=== PATIENT | female | born 1955 | race Caucasian/White ===

== ENCOUNTER → 2018-10-13 | Outpatient (CLI) | payer MEDICARE, BC ==
[~2018-10-13] MED LIST: ALBU90OI6; BRIMONIDINE 0.110 ML; Budeprion Xl300 MG; CHOL10002; HYDR1TAB94; LATANOPROST2.5 ML; MOMENI; Omeprazole20 M1; PROM25; Prozac20 MG; SIMV40
== END | disposition home or self-care (01) ==
LOC: LAB SHORT 15:30 → LAB 15:30
PROVIDERS: Nurse Practitioner
DX: Z01.419 Encounter for gynecological examination (general) (routine) without abnormal findings (principal)
CPT/HCPCS: G0145

== ENCOUNTER 2018-11-29 08:12 | Day surgery (SDC) | payer MEDICARE, BC ==
[~2018-11-29] VITALS: Ht 162.6 cm; Wt 99.8 kg
[~2018-11-29 08:12] MED LIST changes: +BRIMONIDINE TART5 M1 BOTHEYES; +Budeprion Xl300 MG PO; +CALCIUM CITRATE PO; +Coq-10100 MG PO; +MAGNESIUM; +Multiple Vitam1 EACH PO; +Prozac20 MG PO; +SIMV40 PO; +TURMERIC 500 M1 EACH; +VITAMIN D32000 UNI1 PO; +Xalatan2.5 ML BOTHEYES; +ZINC15
[2018-11-29] MEDS ORDERED: DORZOPSO (08:48)
== END 2018-11-29 10:35 | disposition home or self-care (01) ==
LOC: ORSCSDS 08:12
PROVIDERS: Student in an Organized Health Care Education/Training Program
PROC: 0DBH8ZX Excision of Cecum, Via Natural or Artificial Opening Endoscopic, Diagnostic (ICD-10-PCS; principal; 2018-11-29 09:30)
PROC: 0DBK8ZX Excision of Ascending Colon, Via Natural or Artificial Opening Endoscopic, Diagnostic (ICD-10-PCS; principal; 2018-11-29 09:30)
DX: Z12.11 Encounter for screening for malignant neoplasm of colon (principal); Z86.010 Personal history of colon polyps; D12.0 Benign neoplasm of cecum; D12.2 Benign neoplasm of ascending colon; Q27.33 Arteriovenous malformation of digestive system vessel; K57.30 Diverticulosis of large intestine without perforation or abscess without bleeding; K64.8 Other hemorrhoids; Z87.891 Personal history of nicotine dependence; J45.909 Unspecified asthma, uncomplicated; Z79.899 Other long term (current) drug therapy
CPT/HCPCS: 88305; J0461; J2405; J2704; J7120

== ENCOUNTER → 2019-06-20 | Outpatient (CLI) | payer MEDICARE, BC ==
[~2019-06-20] MED LIST changes: +DORZOPSO
[2019-06-20 17:13] LABS: Source, Urine Clean Catch
[2019-06-20 21:25] LABS: Bilirubin, Urine Neg (Neg); Blood, Urine Neg (Neg); Glucose Qualitative, Urine Neg (Neg); Ketones, Urine Neg (Neg); Leukocyte Esterase, Urine 1+ (Neg); Nitrite, Urine Neg (Neg); Protein, Urine Neg (Neg); Specific Gravity, Urine 1.015 (1.003-1.022); Urobilinogen, Urine NORM (Normal)
[2019-06-20 21:35] LABS: Appearance, Urine Clear (Clear); Color, Urine Yellow (P-Yellow)
[2019-06-20 21:36] LABS: Bacteria Few /hpf; Red Blood Cells, Urine 0-2 /hpf (0-2); Squamous Epithelial Cells Few /hpf (Few)
[2019-06-21 06:47] LABS: Candida species (DNA Probe) Negative (NEGATIVE); G. vaginalis (DNA Probe) Negative (NEGATIVE); T. vaginalis (DNA Probe) Negative (NEGATIVE)
== END | disposition home or self-care (01) ==
LOC: LAB 15:54 → LAB SHORT 15:54
PROVIDERS: Advanced Practice Midwife
DX: N76.0 Acute vaginitis (principal); N39.46 Mixed incontinence
CPT/HCPCS: 81001; 87480; 87510; 87660

== ENCOUNTER → 2019-06-28 | Outpatient (CLI) | payer MEDICARE, BC ==
[2019-06-28 16:22] LABS: Source, Urine Clean Catch
[2019-06-28 19:13] LABS: Red Blood Cells, Urine 0-2 /hpf (0-2); Squamous Epithelial Cells Few /hpf (Few); White Blood Cells, Urine 0-2 /hpf (0-5)
[2019-06-28 19:14] LABS: Bacteria Few /hpf
== END | disposition home or self-care (01) ==
LOC: LAB 16:20 → LAB SHORT 16:20
PROVIDERS: Advanced Practice Midwife
DX: R30.9 Painful micturition, unspecified (principal)
CPT/HCPCS: 81015; 87086

== ENCOUNTER 2019-11-01 18:53 | Observation (INO) | payer MEDICARE, BC ==
[~2019-11-01] VITALS: Ht 160 cm; Wt 100.0 kg
[~2019-11-01 18:53] MED LIST changes: -Budeprion Xl300 MG PO; -DORZOPSO; -Prozac20 MG PO; -SIMV40 PO; -Xalatan2.5 ML BOTHEYES
[2019-11-01 21:08] LABS: BASOPHILS ABSOLUTE AUTO 0.05 K/mm3 (0.00-0.23); BASOPHILS PERCENT AUTO 0 % (0-2); EOSINOPHILS ABSOLUTE AUTO 0.06 K/mm3 (0.00-0.68); EOSINOPHILS PERCENT AUTO 0 % (0-6); Hematocrit 41.6 % (33.0-51.0); Hemoglobin 12.8 g/dL (11.5-16.0); IMMATURE GRAN ABSOLUTE AUTO 0.05 K/mm3 (0.00-0.10); IMMATURE GRAN PERCENT AUTO 0 % (0-1); LYMPHOCYTES ABSOLUTE AUTO 1.77 K/mm3 (0.84-5.20); LYMPHOCYTES PERCENT AUTO 12 % (21-46); MONOCYTES ABSOLUTE AUTO 0.51 K/mm3 (0.16-1.47); MONOCYTES PERCENT AUTO 4 % (4-13); Mean Corpuscular HGB 28.3 pg (26.0-34.0); Mean Corpuscular HGB Conc 30.8 g/dL (31.5-36.5); Mean Corpuscular Volume 92 fL (80-100); Mean Platelet Volume 9.9 fL (9.1-12.4); NEUTROPHILS ABSOLUTE AUTO 11.83 K/mm3 (1.96-9.15); NEUTROPHILS PERCENT AUTO 83 % (41-73); Platelet Count 449 K/mm3 (150-400); RDW Standard Deviation 47.4 fL (35.1-46.3); Red Blood Cell Count 4.53 M/mm3 (3.80-5.20); White Blood Cell Count 14.27 K/mm3 (4.00-11.30)
[2019-11-01 21:23] LABS: Alanine Aminotransfer (ALT/SGP 165 U/L (12-78); Albumin, Blood 3.8 g/dL (3.4-5.0); Alk Phos 118 U/L (50-136); Anion Gap 6 mmol/L (6-16); Aspartate Aminotrans (AST/SGOT 364 U/L (12-37); Bilirubin, Total 0.4 mg/dL (0.1-1.0); Blood Urea Nitrogen 18 mg/dL (8-24); Bun/Creatinine Ratio 23.4 (12.0-20.0); CO2, Blood 26 mmol/L (21-32); Calcium, Blood 8.8 mg/dL (8.5-10.1); Chloride, Blood 108 mmol/L (98-108); Creatinine, Blood 0.77 mg/dL (0.40-1.00); Glomerular Filtration Rate >60 (60-); Glucose, Blood 129 mg/dL (70-99); Potassium, Blood 3.8 mmol/L (3.5-5.5); Sodium, Blood 140 mmol/L (136-145); Total Protein, Blood 7.8 g/dL (6.4-8.2); Troponin I <0.015 ng/mL (0.000-0.040)
[2019-11-01] MEDS ORDERED: BUPROPION XL150 M1 PO (22:24)
[2019-11-01] MEDS ORDERED: SIMV40 PO (22:24)
[2019-11-01] MEDS ORDERED: Prozac20 MG PO (22:24)
[2019-11-01] MEDS ORDERED: Xalatan2.5 ML BOTHEYES (22:25)
[2019-11-01] MEDS ORDERED: DORZOPSO BOTHEYES (22:26)
[2019-11-01] MEDS ORDERED: OMEP20ER PO (22:26)
[2019-11-01] MEDS ORDERED: Oxybutynin Chlor5 M1 PO (22:27)
[2019-11-01 23:14] LABS: Source, Urine Clean Catch
[2019-11-01 23:18] LABS: Appearance, Urine Clear (Clear); Color, Urine Yellow (P-Yellow); Leukocyte Esterase, Urine Neg (Neg); Nitrite, Urine Neg (Neg); Specific Gravity, Urine 1.005 (1.003-1.022)
[2019-11-01 23:19] LABS: Bilirubin, Urine Neg (Neg); Blood, Urine Neg (Neg); Glucose Qualitative, Urine Neg (Neg); Ketones, Urine Neg (Neg); Protein, Urine 1+ (Neg); Urobilinogen, Urine NORM (Normal)
--- NOTE | 2019-11-02 05:13 | NUR ---
SHIFT SUMMARY: PT ADMITTED FROM ER AT APPROX 2320 FOR KANNAN. A&O X4. PAIN BEING MANAGED WITH 1MG IV DILAUDID PER EMAR. PT MEDICATED TWICE. DENIES N/V. PT HAS BEEN NPO SINCE MIDNIGHT FOR SURGERY TODAY. FLUIDS INFUSING PER EMAR.
--- NOTE | 2019-11-02 12:58 | NUR ---
to day surgery per justin
--- NOTE | 2019-11-02 13:02 | NUR ---
RETURNED FROM DAY SURGERY DUE TO SCHEDULING CHANGE
--- NOTE | 2019-11-02 15:45 | NUR ---
to day surgery via [email or web address]
--- NOTE | 2019-11-02 17:02 | NUR ---
Ambulatory in Day Surgery. Surgical site prepped with 2% Chlorhexidine cloth wipe. History, Chart, Medications and Allergies reviewed before start of procedure.Lungs clear T/O to Auscultation. Patient confirms NPO status and agrees with scheduled surgery. Pre-Op teaching done. Pt verbalizes understanding.
--- NOTE | 2019-11-02 18:41 | NUR ---
G[facility]IN[facility] PT REMAINS OUT OF ROOM IN OR
--- NOTE | 2019-11-03 05:38 | NUR ---
SHIFT SUMMARY HAS RESTED WELL, NO ACUTE CHANGES THIS SHIFT. LYING IN SEMI FOWLERS WITH EYES OPEN WHILE ON PHONE. LAP SITES X4 ARE C/D/I. POSS D/C HOME TODAY. MEDICATED FOR PAIN X1 THIS AM. HAS DENIED DISCOMFORT, OR FURTHER NEEDS AT THIS TIME. SAFETY MEASURES IN PLACE. WILL CONTINUE TO MONITOR AND GIVE HAND OFF TO ONCOMING SHIFT USING SBAR DURING BEDSIDE REPORT.
[2019-11-03] MEDS ORDERED: HYDR1TAB94 PO (11:19)
--- NOTE | 2019-11-03 13:43 | NUR ---
DISCHARGED DC IV, CATHETER INTACT. REVIEWED DC PAPERWORK W/PT. VERBALIZED UNDERSTANDING. LEFT UNIT IN WC W/POSSESSIONS AND DC PAPERWORK IN HAND ACCOMPANIED BY S.O.
== END 2019-11-03 13:14 | disposition home or self-care (01) ==
LOC: ER 18:53 → SURS 18:54
PROVIDERS: Emergency Medicine; ADMIT Surgery
PROC: 0FT44ZZ Resection of Gallbladder, Percutaneous Endoscopic Approach (ICD-10-PCS; principal; 2019-11-02 15:00)
PROC: BF03YZZ Plain Radiography of Gallbladder and Bile Ducts using Other Contrast (ICD-10-PCS; principal; 2019-11-02 15:00)
DX: K80.10 Calculus of gallbladder with chronic cholecystitis without obstruction (principal); K21.9 Gastro-esophageal reflux disease without esophagitis; E78.5 Hyperlipidemia, unspecified; J45.909 Unspecified asthma, uncomplicated; F32.9 Major depressive disorder, single episode, unspecified; Z79.899 Other long term (current) drug therapy; Z87.891 Personal history of nicotine dependence
CPT/HCPCS: 36415; 74176; 74300; 80053; 83690; 84484; 85025; 93005; 93010; 96365; 96366; 96367; 96375; 99285-25; A9270-GY; C1729; G0378; J0295; J1100; J1170; J1885; J2250; J2405; J2543; J2704; J3010; J7030; J7120; U0002

== ENCOUNTER 2022-03-10 10:02 | Day surgery (SDC) | payer MEDICARE, BC ==
[~2022-03-10] VITALS: Ht 160 cm; Wt 86.8 kg
[~2022-03-10 10:02] MED LIST changes: +BUPROPION XL150 M1 PO; +DORZOPSO BOTHEYES; +HYDR1TAB94 PO; +OMEP20ER PO; +Oxybutynin Chlor5 M1 PO; +Prozac20 MG PO; +SIMV40 PO; +Xalatan2.5 ML BOTHEYES
--- NOTE | 2022-03-10 10:52 | NUR ---
03/10/22 1052 Brandy Spivey TWO ATTEMPTS AT IV. FISRT ATTEMPT IN R HAND BY KATE INFILTREATED. SECOND ATTEMPT IN LEFT HADN BY NEENA MALDONADO.
== END 2022-03-10 11:54 | disposition home or self-care (01) ==
LOC: ORSCSDS 10:02
PROVIDERS: Student in an Organized Health Care Education/Training Program
PROC: 0DBC8ZX Excision of Ileocecal Valve, Via Natural or Artificial Opening Endoscopic, Diagnostic (ICD-10-PCS; principal; 2022-03-10 11:15)
DX: Z12.11 Encounter for screening for malignant neoplasm of colon (principal); Z86.010 Personal history of colon polyps; D12.0 Benign neoplasm of cecum; K57.30 Diverticulosis of large intestine without perforation or abscess without bleeding; K59.09 Other constipation; E78.5 Hyperlipidemia, unspecified; F32.A Depression, unspecified; H40.9 Unspecified glaucoma; Z87.891 Personal history of nicotine dependence; E66.9 Obesity, unspecified; Z68.39 Body mass index [BMI] 39.0-39.9, adult; Z79.899 Other long term (current) drug therapy
CPT/HCPCS: 88305; J2704; J7120

== ENCOUNTER → 2023-04-16 | Outpatient (CLI) | payer MEDICARE, BC | LOC: LAB SHORT 09:59 → LAB 09:59 | DX: Z20.9 Contact with and (suspected) exposure to unspecified communicable disease (principal) | CPT/HCPCS: 87807 ==

== ENCOUNTER → 2024-05-25 | Outpatient (CLI) | payer MEDICARE, BC ==
[2024-05-31 13:58] LABS: HPV HIGH RISK BY TMA Not Detected; HPV SOURCE Cervical
== END ==
LOC: LAB SHORT 16:38 → LAB 16:38
PROVIDERS: Physician Assistant
DX: Z01.419 Encounter for gynecological examination (general) (routine) without abnormal findings (principal)
CPT/HCPCS: 87624; G0123